=== PATIENT | male | born 1990 | race Caucasian/White ===

== ENCOUNTER 2023-12-31 16:54 | Emergency (ER) | payer OTHER, SELFPAY ==
[2023-12-31 16:58] VITALS: BP 153/99; PULSE 89; TEMP 36.5; O2SAT 99; BMI 28.7
--- NOTE | 2023-12-31 17:06 | XR_ITS ---
The [address] [address] Patient Name: DELMY COLMENARES MRN: [id number] date: 1990 Sex: M Assigned Patient Location: ED.MAIN Current Patient Location: ER Accession/Order Number: [id number] Exam Date: 12/31/2023 17:20 Report Date: 12/31/2023 18:04 At the request of: NASEEM MARTIN Procedure: XR foot LT min 3V IMAGES REVIEWED: XR ankle LT min 3V, XR foot LT min 3V COMPARISON: None available. CLINICAL INDICATION: trauma FINDINGS/IMPRESSION: 1. Suspect a subtle tiny acute nondisplaced fracture involving the dorsal aspect of the proximal navicular on the lateral view. 2. Bony irregularity of the posterior inferior calcaneus may raise suspicion for fracture. Correlate for focal tenderness. 3. Otherwise the left ankle and left foot appear intact. 4. Anterior ankle-dorsal foot soft tissue swelling. Electronically authenticated by: CRISTY CASTANO Date: 12/31/2023 18:04
--- NOTE | 2023-12-31 17:06 | XR_ITS ---
The [address] [address] Patient Name: DELMY COLMENARES MRN: [id number] date: 1990 Sex: M Assigned Patient Location: ED.MAIN Current Patient Location: ER Accession/Order Number: [id number] Exam Date: 12/31/2023 17:20 Report Date: 12/31/2023 18:04 At the request of: NASEEM MARTIN Procedure: XR ankle LT min 3V IMAGES REVIEWED: XR ankle LT min 3V, XR foot LT min 3V COMPARISON: None available. CLINICAL INDICATION: trauma FINDINGS/IMPRESSION: 1. Suspect a subtle tiny acute nondisplaced fracture involving the dorsal aspect of the proximal navicular on the lateral view. 2. Bony irregularity of the posterior inferior calcaneus may raise suspicion for fracture. Correlate for focal tenderness. 3. Otherwise the left ankle and left foot appear intact. 4. Anterior ankle-dorsal foot soft tissue swelling. Electronically authenticated by: CRISTY CASTANO Date: 12/31/2023 18:04
[2023-12-31] MEDS: KETOROLAC TROMETHAMINE 60 MG/2 ML VIAL IM (17:21)
--- NOTE | 2023-12-31 18:07 | ED_ITS ---
HPI HPI - Extremity Injury (Lower) General Chief Complaint: Extremity Injury, Lower Stated Complaint: LOWER EXTREMITY INJURY Time Seen by Provider: 12/31/23 17:06 Source: patient Mode of arrival: walk-in Limitations: no limitations History of Present Illness HPI Narrative: The patient is coming to the ER with a left foot pain that started after he had a tractor bucket fell on his left foot, the patient denies any other injuries he has not been able to put weight on his left ankle since then as well as his left foot. Related Data Home Medications ?Medication ?Instructions ?Recorded ?Confirmed No Known Home Medications 12/31/23 12/31/23 Allergies Allergy/AdvReac Type Severity Reaction Status Date / Time No Known Drug Allergies Allergy Verified 12/31/23 16:58 Opioid HPI Opioid Management Most Recent Pain and Opioid Data: Last Pain Scale 7 12/31/23 17:21 Last MAR Pain Assessment 12/31/23 17:21 Review of Systems ROS Status of ROS 10 or more systems reviewed and unremark able except as noted in history and below Exam Narrative Exam Narrative: Nurses notes and vital signs reviewed and patient is not hypoxic. General: Well-appearing and in no apparent distress. Skin: Warm, dry, no pallor noted. No rash. Head: Normocephalic, atraumatic. Neck: Supple, non-tender. Eye: Pupils are equal, round and EOMI. No scleral icterus. Ears, Nose, Mouth, and Throat: TM are clear, no nasal mucosal hypertrophy. Oral mucosa is moist, no posterior oropharynx erythema, uvula is mid-line Cardiovascular: Regular Rate and Rhythm without murmur, gallop or rub. Respiratory: No accessory muscle use or respiratory distress. Lungs are clear to auscultation, no wheezing, rales or rhonchi Chest Wall: no tenderness Back: No midline thoracic or lumbar vertebral tenderness. No CVA tenderness Musculoskeletal: significant swelling of the left foot , no open wounds , no vascular injury GI: Abdomen is soft, non-distended. Normal bowel sounds. No masses appreciated. No tenderness to palpation. No rebound, guarding, or rigidity noted. Neurological: A&O x4. No cranial nerve dysfunction observed. No truncal ataxia. Moves all extremities. Sensation intact. Psychiatric: Cooperative and interactive. Normal mood and affect. Constitutional Vital Signs, click to edit/add: Last Vital Signs Temp 97.7 F 12/31/23 16:58 Pulse 89 12/31/23 16:58 Resp 16 12/31/23 16:58 BP 153/99 H 12/31/23 16:58 Pulse Ox 99 12/31/23 16:58 O2 Del Method Room Air 12/31/23 16:58 Course Vital Signs Vital signs: Vital Signs Temperature 97.7 F 12/31/23 16:58 Pulse Rate 89 12/31/23 16:58 Respiratory Rate 16 12/31/23 16:58 Blood Pressure 153/99 H 12/31/23 16:58 Pulse Oximetry 99 12/31/23 16:58 Oxygen Delivery Method Room Air 12/31/23 16:58 Temperature 97.7 F 12/31/23 16:58 Pulse Rate 89 12/31/23 16:58 Respiratory Rate 16 12/31/23 16:58 Blood Pressure 153/99 H 12/31/23 16:58 Pulse Oximetry 99 12/31/23 16:58 Oxygen Delivery Method Room Air 12/31/23 16:58 MDM - Extremity Injury (Lower) MDM Narrative Medical decision making narrative: The patient had an x-ray of his left foot that showed possible navicular fracture as well as possible calcaneal fracture Due to the significant of the mechanism and the heavy weight of the tractor bucket I did discuss the case with Dr. Razo and he requested the CAT scan to be done of the foot and he will be informed of the results by Dr. Elizabeth before the patient follow-up with him on Tuesday Discharge Plan Discharge Patient Disposition: Still a Patient
--- NOTE | 2023-12-31 18:46 | CT_ITS ---
The [address] [address] Patient Name: DELMY COLMENARES MRN: [id number] date: 1990 Sex: M Assigned Patient Location: ER Current Patient Location: ED.MAIN Accession/Order Number: [id number] Exam Date: 12/31/2023 19:05 Report Date: 12/31/2023 20:42 At the request of: NASEEM MARTIN Procedure: CT foot LT wo con IMAGES REVIEWED: CT foot LT wo con COMPARISON: None available. CLINICAL INDICATION: trauma Technique: Multiplanar CT images of the left foot without contrast. FINDINGS: Acute comminuted fracture of the posterior inferior calcaneus demonstrating minimal displacement and minimal angulation/impaction of fracture fragments. This was also suspected on same-day x-ray, however with clinical history of a bucket dropping on the dorsal foot uncertain if sufficient force to cause a plantar hindfoot fracture, apparently a tractor bucket is sufficiently heavy. Acute intra-articular nondisplaced avulsion fracture of the dorsal navicular also again seen. Dorsal foot soft tissue hematoma. Chronic medial ankle ossicles. CT/CT foot LT wo con IMPRESSION: As above. Electronically authenticated by: CRISTY CASTANO Date: 12/31/2023 20:42
--- NOTE | 2023-12-31 21:19 | ED_ITS ---
HPI HPI - Extremity Injury (Lower) General Chief Complaint: Extremity Injury, Lower Stated Complaint: LOWER EXTREMITY INJURY Time Seen by Provider: 12/31/23 17:06 Source: patient Mode of arrival: walk-in Limitations: no limitations History of Present Illness HPI Narrative: The patient was initially seen by Dr. Mcfarland and signed out to me after discussing the case with her thoroughly. Please see her full history and physical. Related Data Previous Rx's ?Medication ?Instructions ?Recorded hydrocodone 5 mg-acetaminophen 325 1 tab PO Q6H PRN pain 5 days #20 12/31/23 mg tablet tabs Allergies Allergy/AdvReac Type Severity Reaction Status Date / Time No Known Drug Allergies Allergy Verified 12/31/23 16:58 Opioid HPI Opioid Management Most Recent Pain and Opioid Data: Last Pain Scale 7 12/31/23 17:21 Last MAR Pain Assessment 12/31/23 17:21 Exam Constitutional Vital Signs, click to edit/add: Last Vital Signs Temp 97.7 F 12/31/23 16:58 Pulse 89 12/31/23 16:58 Resp 16 12/31/23 16:58 BP 153/99 H 12/31/23 16:58 Pulse Ox 99 12/31/23 16:58 O2 Del Method Room Air 12/31/23 16:58 Course Vital Signs Vital signs: Vital Signs Temperature 97.7 F 12/31/23 16:58 Pulse Rate 89 12/31/23 16:58 Respiratory Rate 16 12/31/23 16:58 Blood Pressure 153/99 H 12/31/23 16:58 Pulse Oximetry 99 12/31/23 16:58 Oxygen Delivery Method Room Air 12/31/23 16:58 Temperature 97.7 F 12/31/23 16:58 Pulse Rate 89 12/31/23 16:58 Respiratory Rate 16 12/31/23 16:58 Blood Pressure 153/99 H 12/31/23 16:58 Pulse Oximetry 99 12/31/23 16:58 Oxygen Delivery Method Room Air 12/31/23 16:58 MDM - Extremity Injury (Lower) MDM Narrative Medical decision making narrative: CT scan shows displaced calcaneal fracture as well as the navicular fracture which appears to be avulsion type. I have spoken to Dr. Sher and follow-up is arranged. The patient is prescribed [place]. I have placed a short leg posterior splint on the patient. He is neurovascularly intact. Differential Diagnosis Differential diagnosis: Likely other (Fracture, sprain, contusion) Imaging Data CAT scan: Radiologist's impression: ITS Impressions Foot CT 12/31/23 18:46 IMPRESSION: As above. Electronically authenticated by: CRISTY CASTANO Date: 12/31/2023 20:42 Procedure: CT foot LT wo con IMAGES REVIEWED: CT foot LT wo con COMPARISON: None available. CLINICAL INDICATION: trauma Technique: Multiplanar CT images of the left foot without contrast. FINDINGS: Acute comminuted fracture of the posterior inferior calcaneus demonstrating minimal displacement and minimal angulation/impaction of fracture fragments. This was also suspected on same-day x-ray, however with clinical history of a bucket dropping on the dorsal foot uncertain if sufficient force to cause a plantar hindfoot fracture, apparently a tractor bucket is sufficiently heavy. Acute intra-articular nondisplaced avulsion fracture of the dorsal navicular also again seen. Dorsal foot soft tissue hematoma. Chronic medial ankle ossicles. IMPRESSION: As above. Electronically authenticated by: CRISTY CASTANO Date: 12/31/2023 20:42 Discharge Plan Discharge Stand Alone Forms: Portal Instructions Chief Complaint: Extremity Injury, Lower Clinical Impression: Closed navicular fracture of ankle, Calcaneal fracture Patient Disposition: Home, Self-Care Time of Disposition Decision: 21:17 Condition: Good Mode of Transportation: Private Vehicle Prescriptions / Home Meds: New hydrocodone-acetaminophen 5-325 mg tablet 1 tab PO Q6H PRN (Reason: pain) 5 Days Qty: 20 0RF Print Language: Hungarian Instructions: Crutch Instructions (ED), Foot Fracture in Adults (ED), Calcaneal Fracture (ED) Additional Instructions: Call Dr. Mathur's office on Tuesday morning to be seen Tuesday or Tuesday. Referrals: Physician,Non-Staff, [Primary Care Provider] - 1 week Anton Mathur DPM [Physician] - As soon as possible
[2023-12-31 21:28] VITALS: BP 132/87; PULSE 75; O2SAT 99
== END 2023-12-31 21:29 | disposition home or self-care (01) ==
PROVIDERS: Emergency Provider Emergency Medicine
DX: S92.002A Unspecified fracture of left calcaneus, initial encounter for closed fracture (principal); S92.255A Nondisplaced fracture of navicular [scaphoid] of left foot, initial encounter for closed fracture; W20.8XXA Other cause of strike by thrown, projected or falling object, initial encounter
CPT/HCPCS: 29515; 73610; 73630; 73700; 96372; 99285

== ENCOUNTER 2024-01-24 08:58 | Outpatient (OUT) | payer OTHER, SELFPAY ==
--- NOTE | 2024-01-24 | XR_ITS ---
The [address] [address] Patient Name: DELMY COLMENARES MRN: [id number] date: 1990 Sex: M Assigned Patient Location: Current Patient Location: Accession/Order Number: [id number] Exam Date: 01/24/2024 09:00 Report Date: 01/25/2024 06:22 At the request of: ALANIS RAMIREZ Procedure: XR foot LT min 3V PROCEDURE: XR foot LT min 3V HISTORY: LEFT FOOT PAIN COMPARISON: XR foot left 12/31/2023 FINDINGS: BONES:Stable alignment of posterior calcaneal fracture with slightly increased lucency of the fracture lines consistent with early bone resorption. No appreciable callus formation. SOFT TISSUES:Mild soft tissue swelling. EFFUSION:None visible. OTHER: Negative. XR/XR foot LT min 3V IMPRESSION: 1. Stable posterior inferior calcaneal fracture without significant displacement or appreciable callus formation. Electronically authenticated by: SHENA BLEVINS Date: 01/25/2024 06:22
== END 2024-01-24 08:59 | disposition home or self-care (01) ==
LOC: EC 08:58
PROVIDERS: Visit Provider Podiatrist Foot & Ankle Surgery
DX: S92.042D Displaced other fracture of tuberosity of left calcaneus, subsequent encounter for fracture with routine healing (principal)
CPT/HCPCS: 73630

== ENCOUNTER 2024-02-07 09:29 | Outpatient (OUT) | payer OTHER, SELFPAY ==
--- NOTE | 2024-02-07 | XR_ITS ---
The [address] [address] Patient Name: DELMY COLMENARES MRN: [id number] date: 1990 Sex: M Assigned Patient Location: Current Patient Location: Accession/Order Number: [id number] Exam Date: 02/07/2024 09:32 Report Date: 02/08/2024 05:45 At the request of: ALANIS RAMIREZ Procedure: XR foot LT min 3V PROCEDURE: XR foot LT min 3V HISTORY: LEFT FOOT PAIN COMPARISON: XR foot left 01/24/2024 FINDINGS: BONES:Prior posterior inferior calcaneal fracture with slight increased density of the fracture lines. No displacement. SOFT TISSUES:No visible soft tissue swelling. EFFUSION:None visible. OTHER: Negative. XR/XR foot LT min 3V IMPRESSION: 1. Stable alignment of the posterior inferior calcaneal fracture with changes of early bone healing. Electronically authenticated by: SHENA BLEVINS Date: 02/08/2024 05:45
== END 2024-02-07 09:30 | disposition home or self-care (01) ==
LOC: EC 09:29
PROVIDERS: Visit Provider Podiatrist Foot & Ankle Surgery
DX: S92.255D Nondisplaced fracture of navicular [scaphoid] of left foot, subsequent encounter for fracture with routine healing (principal)
CPT/HCPCS: 73630

== ENCOUNTER 2024-02-29 10:28 | Outpatient (OUT) | payer OTHER, SELFPAY ==
--- NOTE | 2024-02-29 | XR_ITS ---
The [address] [address] Patient Name: DELMY COLMENARES MRN: [id number] date: 1990 Sex: M Assigned Patient Location: Current Patient Location: Accession/Order Number: [id number] Exam Date: 02/29/2024 10:30 Report Date: 02/29/2024 13:00 At the request of: ALANIS RAMIREZ Procedure: XR calcaneus LT min 2V PROCEDURE: XR calcaneus LT min 2V COMPARISON: 02/07/2024 HISTORY: LEFT FOOT PAIN FINDINGS: BONES:Stable posterior inferior calcaneal fracture with increased sclerosis suggesting healing. No change in angulation or distraction. SOFT TISSUES:Negative. No visible soft tissue swelling. EFFUSION:None visible. OTHER: Negative. XR/XR calcaneus LT min 2V IMPRESSION: Stable healing calcaneus fracture Electronically authenticated by: ALE GUERRERO Date: 02/29/2024 13:00
== END 2024-02-29 10:29 | disposition home or self-care (01) ==
LOC: EC 10:28
PROVIDERS: Visit Provider Podiatrist Foot & Ankle Surgery
DX: S92.042D Displaced other fracture of tuberosity of left calcaneus, subsequent encounter for fracture with routine healing (principal)
CPT/HCPCS: 73650

== ENCOUNTER 2024-05-02 10:17 | Outpatient (OUT) | payer OTHER, SELFPAY ==
--- NOTE | 2024-05-02 | XR_ITS ---
The [address] [address] Patient Name: DELMY COLMENARES MRN: [id number] date: 1990 Sex: M Assigned Patient Location: Current Patient Location: Accession/Order Number: [id number] Exam Date: 05/02/2024 10:20 Report Date: 05/07/2024 07:25 At the request of: ALANIS RAMIREZ Procedure: XR calcaneus LT min 2V PROCEDURE: XR calcaneus LT min 2V COMPARISON: 02/29/2024 HISTORY: LEFT CALCANEUS PAIN FINDINGS: BONES:Continued sclerosis along the posterior inferior calcaneus fracture. No additional fracture or dislocation. Mild degenerative change. SOFT TISSUES:Negative. No visible soft tissue swelling. EFFUSION:None visible. OTHER: Negative. XR/XR calcaneus LT min 2V IMPRESSION: Stable healing calcaneus fracture Electronically authenticated by: ALE GUERRERO Date: 05/07/2024 07:25
== END 2024-05-02 10:18 | disposition home or self-care (01) ==
LOC: EC 10:18
PROVIDERS: Visit Provider Podiatrist Foot & Ankle Surgery
DX: M79.672 Pain in left foot (principal); S92.002D Unspecified fracture of left calcaneus, subsequent encounter for fracture with routine healing
CPT/HCPCS: 73650